=== PATIENT | female | born 1965 | race Caucasian/White ===

== ENCOUNTER → 2018-04-12 | Outpatient (CLI) | payer OTHER | END | disposition home or self-care (01) | LOC: CFH 12:37 | PROVIDERS: ATTEND Obstetrics & Gynecology | DX: R92.2 Inconclusive mammogram (principal) | CPT/HCPCS: 76377; 76642 ==

== ENCOUNTER → 2019-04-18 | Outpatient (CLI) | payer OTHER | END | disposition home or self-care (01) | LOC: CFH 10:14 | PROVIDERS: ATTEND Obstetrics & Gynecology | DX: Z12.31 Encounter for screening mammogram for malignant neoplasm of breast (principal); M81.0 Age-related osteoporosis without current pathological fracture; N63.11 Unspecified lump in the right breast, upper outer quadrant; Z78.0 Asymptomatic menopausal state | CPT/HCPCS: 76641; 77067; 77080 ==

== ENCOUNTER → 2020-06-22 | Outpatient (CLI) | payer OTHER | END | disposition home or self-care (01) | LOC: CFH 12:23 | PROVIDERS: ATTEND Obstetrics & Gynecology | DX: Z12.31 Encounter for screening mammogram for malignant neoplasm of breast (principal) | CPT/HCPCS: 76641; 77063; 77067 ==

== ENCOUNTER → 2020-09-27 | Outpatient (CLI) | payer OTHER ==
[~2020-09-27] MED LIST: CALC600T60 PO; CHOL10003 PO; GLUC1CAP18 PO; MULT-449 PO; PARO10TA3 PO; RALO60TA PO; RISE35TA PO
== END | disposition home or self-care (01) ==
LOC: STAR 11:46
PROVIDERS: ATTEND Orthopaedic Surgery Hand Surgery
DX: Z20.828 Contact with and (suspected) exposure to other viral communicable diseases (principal); G56.01 Carpal tunnel syndrome, right upper limb
CPT/HCPCS: 87635

== ENCOUNTER 2020-10-03 05:41 | Day surgery (SDC) | payer OTHER ==
[~2020-10-03] VITALS: Ht 157.5 cm; Wt 54.0 kg
[2020-10-03 05:59] VITALS: BP 122/77
[2020-10-03] MEDS ORDERED: CHLORHEXIDINE 15 ML UDC MM ONE (06:00)
[2020-10-03] MEDS ORDERED: LACTATED RINGERS 1,000 ML IV SCH (06:00)
[2020-10-03] MEDS ORDERED: EPINEPHRINE 1 MG/ML, 1ML ONE (07:01)
[2020-10-03] MEDS ORDERED: LIDOCAINE 1%, 20ML ONE (07:01)
[2020-10-03] MEDS ORDERED: BUPIVACAINE/PF 0.5% ONE (07:01)
[2020-10-03] MEDS ORDERED: FENTANYL PF 250 MCG/5ML ONE (07:05)
[2020-10-03] MEDS ORDERED: MIDAZOLAM 1 MG/ML, 2ML ONE (07:05)
[2020-10-03] MEDS ORDERED: PROPOFOL 50 ML ONE (07:15)
[2020-10-03] MEDS ORDERED: BUPIVACAINE/PF-EPI 0.5% 1:200K INFIL ONE (07:24)
[2020-10-03] MEDS ORDERED: LIDOCAINE 1%-EPI 1:100K, 20ML INFIL ONE (07:25)
== END 2020-10-03 09:50 | disposition home or self-care (01) ==
LOC: OUT 05:41
PROVIDERS: ATTEND Orthopaedic Surgery Hand Surgery
DX: G56.01 Carpal tunnel syndrome, right upper limb (principal); Z79.899 Other long term (current) drug therapy; Z88.1 Allergy status to other antibiotic agents; Z88.8 Allergy status to other drugs, medicaments and biological substances; Z90.710 Acquired absence of both cervix and uterus; Z98.890 Other specified postprocedural states; M81.0 Age-related osteoporosis without current pathological fracture; Z87.81 Personal history of (healed) traumatic fracture
CPT/HCPCS: 29848; J0171; J2250; J2704; J3010; J7120